=== PATIENT | male | born 1995 | race Caucasian/White ===

== ENCOUNTER 2019-05-25 00:43 | Emergency (ER) | payer SELFPAY ==
[~2019-05-25] VITALS: Ht 170.2 cm; Wt 81.1 kg
[2019-05-25 00:47] VITALS: Ht 170.2 cm; Wt 81.1 kg
--- NOTE | 2019-05-25 04:30 | ERD ---
ER Documentation Chief Complaint Chief Complaint RASH ON STOMACH X'S 3 DAYS HPI Patient is a 23 years old male with no known past medical history presenting to the clinic for jock itch X 3 days. Patient reports being evaluated by his PCP yesterday and was diagnosed with tinea cruris and was given to antifungal medi cation (1 of them is clotrimazole and patient cannot recall the other). Patient reports dry scaly rash on groin area that is mildly pruritic. Patient denies all other review of systems. ROS All systems reviewed and are negative except as per history of present illness. Allergies Allergies: Coded Allergies: No Known Allergy (Unverified , 05/25/19) PMhx/Soc Medical and Surgical Hx: pt denies Medical Hx, pt denies Surgical Hx History of Surgery: No Anesthesia Reaction: No Hx Neurological Disorder: No Hx Respiratory Disorders: No Hx Cardiac Disorders: No Hx Psychiatric Problems: No Hx Miscellaneous Medical Probl: No Hx Alcohol Use: No Hx Substance Use: No Hx Tobacco Use: No Smoking Status: Never smoker Physical Exam Vitals Vital Signs Date Temp Pulse Resp B/P (MAP) Pulse Ox O2 O2 Flow FiO2 Time Delivery Rate 05/25/19 97.8 72 18 140/87 100 00:47 (104) Physical Exam Const: No acute distress Head: Atraumatic Eyes: Normal Conjunctiva Resp: Clear to auscultation bilaterally Cardio: Regular rate and rhythm, no murmurs Skin: Dry, scaly rash on groin. No signs of erythema, induration, skin perforation. Neur: Awake and alert Psych: Normal Mood and Affect Procedures/MDM Patient was seen and evaluated for uncomplicated tinea cruris. Patient was advised to continue taking his antifungal medication as prescribed by his PCP. No further work-up or treatment required in ED as of now. Departure Diagnosis: Primary Impression: Tinea cruris Condition: Stable Patient Instructions: Tinea Cruris, Jock Itch Referrals: [facility] Additional Instructions: Patient advised to return to the ED immediately for new or worsening symptoms. Patient advised to follow up with primary care provider in the next 24-48 hours. Patient verbalized understanding and agrees with treatment plan and course of action. If patient has no primary care they may follow up with [facility] + [address] [address] or [id number] [place] [address] or [facility] [address] [place] [address] FRANCHESKA TERRY PA-C May 25, 2019 04:30
[2019-05-25 04:35] VITALS: BP 133/82; PULSE 72; RESP 16
== END 2019-05-25 04:35 | disposition home or self-care (01) ==
LOC: FTE 00:43
DX: B35.6 Tinea cruris (principal)
CPT/HCPCS: 99282